=== PATIENT | female | born 1965 | race Caucasian/White ===

== ENCOUNTER 2020-11-24 03:00 | Emergency (ER) | payer OTHER ==
[~2020-11-24] VITALS: Ht 170.2 cm; Wt 99.8 kg
--- NOTE | ~2020-11-24 | EMS ---
[address] [address] EMS Patient Care Report Name: VIVIAN CHATMAN Room #: DEP [facility]#: [id number] Admission: 11/24/20 Attend Phys: Discharge: 11/24/20 Date of : 67 Report #: [id number] THIS REPORT FOR: //name// Report Transmitted: 11/25/2020 09:34 EMS Care Summary [place], [place]/[facility] Incident [id number] @ 11/24/2020 02:10 Incident Location [address] [place] [address] Patient VIIVAN CHATMAN Female, 55 Years 1965 Patient Address [address] [place] [address] Patient History Bronchitis Chronic,Emphysema,Anxiety Disorder (Panic Attacks), Patient Allergies No known allergies, Patient Medications None Reported, Chief Complaint I can't breathe Disposition Transported No Lights/[place] Dispatch Reason Breathing Problem Transported To [facility] Narrative Called for SOB. Upon arrival, P41 on the scene. Pt was DE LEON x 3 with nebulizer tx going. Pt was recently dx with bronchitis and c/o SOB. Nebulizer tx was finished and pt was panicing. After efforts to calm her down failed, she said she wanted to go to the hospital by an ambulance. Pt assisted [place] [address] EMS Patient Care Report Name: VIVIAN CHATMAN Room #: [facility]#: [id number] Admission: 11/24/20 Attend Phys: Discharge: 11/24/20 Date of : 67 Report #: [id number] and loaded into the ambulance w/o incident. Vitals obtained. En route: pt c/o pressure in her chest, 12 lead obtained, no ST elevation noted. RR to ER. Vitals repeated. Arrived: pt taken to ER #7 and moved to their bed w/o incident. Pt care & report to ER staff. Initial Vitals @02:51P: 83,GCS: 15,CO: 4,SpO2: 97,AL Suspected: false @02:52P: 88,R: 16,BP: 142/89,Pain: 2/10,GCS: 15,SpO2: 98,Revised Trauma: 12, @02:40P: 88,R: 16,BP: 135/82,Pain: 0/10,GCS: 15,CO: 2,SpO2: 98,Revised Trauma: 12, Assessments @02:20MENTAL:Person Oriented,Time Oriented,Event Oriented,Place Oriented,SKIN:HEENT:LUNG SOUNDS:ABDOMEN:PELVIS//GI:EXTREMITIES:Left Arm: No Abnormalities,Right Arm: No Abnormalities,Left Leg: No Abnormalities,Right Leg: No Abnormalities,PULSE:Radial: 2+ Normal,NEURO:No Abnormalities, Impression Acute Respiratory Distress (Dyspnea) Procedures @PTAAlbuterol - 2.5 Milligrams (mg) - NebulizedResponse: Improved@PTAAtrovent - 0.5 Milligrams (mg) - NebulizedResponse: Improved@PTAOxygen FlowRate: 8 Device: Nebulizer Response: ImprovedSucceeded@02:20ALS AssessmentResponse: UnchangedSucceeded@02:38StretcherResponse: Unchanged@02:5112-Lead ECGResponse: UnchangedSucceeded@02:503-Lead ECGResponse: UnchangedSucceeded Timeline AITCHBONE BREAKER,Albuterol - 2.5 Milligrams (mg) - Nebulized,Response: Improved AITCHBONE BREAKER,Atrovent - 0.5 Milligrams (mg) - Nebulized,Response: Improved AITCHBONE BREAKER,Oxygen FlowRate: 8 Device: Nebulizer Response: ImprovedSucceeded, 02:10,Call Received 02:10,Dispatch Notified 02:10,Dispatched 02:12,En Route 02:19,On Scene 02:20,At Patient 02:20,ALS Assessment,Response: UnchangedSucceeded, 02:38,Stretcher,Response: Unchanged 02:40,BP: 135/82 M,PULSE: 88,RR: 16 R,SPO2: 98 Ox,ETCO2: ,BG: ,PAIN: 0,GCS: 15, 02:41,Depart Scene 02:50,3-Lead ECG,Response: UnchangedSucceeded, 02:51,12-Lead ECG,Response: UnchangedSucceeded, 02:51,BP: / M,PULSE: 83,RR: R,SPO2: 97 Ox,ETCO2: ,BG: ,PAIN: ,GCS: 15, 02:52,BP: 142/89 M,PULSE: 88,RR: 16 R,SPO2: 98 Ox,ETCO2: ,BG: ,PAIN: 2,GCS: 15, 03:00,At Destination [facility] [address] [place] [address] EMS Patient Care Report Name: VIVIAN CHATMAN [facility] [id number] Admission: 11/24/20 Attend Phys: Discharge: 11/24/20 Date of : 67 Report #: [id number] 03:13,Call Closed Disclaimer v1.1 Copyright 2020 [employer] This EMS Care Summary contains data elements from the applicable legal record (which may be displayed differently). It is designed to provide pertinent information for the following purposes: continuity of care, clinical quality, and state data reporting. The complete legal record is available to ED staff and administrators of the receiving hospital in [facility]'s Patient Tracker. All data is provided "as is."
--- NOTE | ~2020-11-24 | EMS ---
[address] [address] EMS Patient Care Report Name: VIVIAN CHATMAN Room #: DEP [facility]#: [id number] Admission: 11/24/20 Attend Phys: Discharge: 11/24/20 Date of : 67 Report #: [id number] THIS REPORT FOR: //name// Report Transmitted: 11/25/2020 08:34 EMS Care Summary [place], [place]/[facility] Incident [id number] @ 11/24/2020 02:10 Incident Location [address] [place] [address] Patient VIVIAN CHATMAN Female, 55 Years 1965 Patient Address [address] [place] [address] Patient History Bronchitis Chronic,Emphysema,Anxiety Disorder (Panic Attacks), Patient Allergies No known allergies, Patient Medications None Reported, Chief Complaint I can't breathe Disposition Transported No Lights/[place] Dispatch Reason Breathing Problem Transported To [facility] Narrative Called for SOB. Upon arrival, P41 on the scene. Pt was DE LEON x 3 with nebulizer tx going. Pt was recently dx with bronchitis and c/o SOB. Nebulizer tx was finished and pt was panicing. After efforts to calm her down failed, she said she wanted to go to the hospital by an ambulance. [place] [address] EMS Patient Care Report Name: VIVIAN CHATMAN Room #: [facility]#: [id number] Admission: 11/24/20 Attend Phys: Discharge: 11/24/20 Date of : 67 Report #: [id number] and loaded into the ambulance w/o incident. Vitals obtained. En route: pt c/o pressure in her chest, 12 lead obtained, no ST elevation noted. RR to ER. Vitals repeated. Arrived: pt taken to ER #7 and moved to their bed w/o incident. Pt care & report to ER staff. Initial Vitals @02:51P: 83,GCS: 15,CO: 4,SpO2: 97,MA Suspected: false @02:52P: 88,R: 16,BP: 142/89,Pain: 2/10,GCS: 15,SpO2: 98,Revised Trauma: 12, @02:40P: 88,R: 16,BP: 135/82,Pain: 0/10,GCS: 15,CO: 2,SpO2: 98,Revised Trauma: 12, Assessments @02:20MENTAL:Place Oriented,Event Oriented,Time Oriented,Person Oriented,SKIN:HEENT:LUNG SOUNDS:ABDOMEN:PELVIS//GI:EXTREMITIES:Left Arm: No Abnormalities,Right Arm: No Abnormalities,Left Leg: No Abnormalities,Right Leg: No Abnormalities,PULSE:Radial: 2+ Normal,NEURO:No Abnormalities, Impression Acute Respiratory Distress (Dyspnea) Procedures @PTAAlbuterol - 2.5 Milligrams (mg) - NebulizedResponse: Improved@PTAAtrovent - 0.5 Milligrams (mg) - NebulizedResponse: Improved@PTAOxygen FlowRate: 8 Device: Nebulizer Response: ImprovedSucceeded@02:20ALS AssessmentResponse: UnchangedSucceeded@02:38StretcherResponse: Unchanged@02:5112-Lead ECGResponse: UnchangedSucceeded@02:503-Lead ECGResponse: UnchangedSucceeded Timeline CAMP ASSISTANT,Albuterol - 2.5 Milligrams (mg) - Nebulized,Response: Improved CAMP ASSISTANT,Atrovent - 0.5 Milligrams (mg) - Nebulized,Response: Improved CAMP ASSISTANT,Oxygen FlowRate: 8 Device: Nebulizer Response: ImprovedSucceeded, 02:10,Call Received 02:10,Dispatch Notified 02:10,Dispatched 02:12,En Route 02:19,On Scene 02:20,At Patient 02:20,ALS Assessment,Response: UnchangedSucceeded, 02:38,Stretcher,Response: Unchanged 02:40,BP: 135/82 M,PULSE: 88,RR: 16 R,SPO2: 98 Ox,ETCO2: ,BG: ,PAIN: 0,GCS: 15, 02:41,Depart Scene 02:50,3-Lead ECG,Response: UnchangedSucceeded, 02:51,12-Lead ECG,Response: UnchangedSucceeded, 02:51,BP: / M,PULSE: 83,RR: R,SPO2: 97 Ox,ETCO2: ,BG: ,PAIN: ,GCS: 15, 02:52,BP: 142/89 M,PULSE: 88,RR: 16 R,SPO2: 98 Ox,ETCO2: ,BG: ,PAIN: 2,GCS: 15, 03:00,At Destination [facility] [address] [place] [address] EMS Patient Care Report Name: VIVIAN CHATMAN [facility] [id number] Admission: 11/24/20 Attend Phys: Discharge: 11/24/20 Date of : 67 Report #: [id number] 03:13,Call Closed Disclaimer v1.1 Copyright 2020 [employer] This EMS Care Summary contains data elements from the applicable legal record (which may be displayed differently). It is designed to provide pertinent information for the following purposes: continuity of care, clinical quality, and state data reporting. The complete legal record is available to ED staff and administrators of the receiving hospital in [facility]'s Patient Tracker. All data is provided "as is."
[2020-11-24] MEDS ORDERED: NOHOMEMEDICATIONS (03:24)
[2020-11-24] MEDS ORDERED: DIPHENHIST50 MG PO (03:25)
[2020-11-24] MEDS ORDERED: EXCEDRIN CAPLE1 EACH PO (03:25)
[2020-11-24 04:18] LABS: ABSOLUTE NEUTROPHILS 5.3 thou/uL (1.4-8.2); BASOPHILS 1.3 % (0.0-2.0); HEMATOCRIT 43.5 % (37.0-47.0); HEMOGLOBIN 14.5 gm/dL (12.0-15.0); LYMPHOCYTES 36.5 % (24.0-44.0); MCH 29.7 pg (26.0-34.0); MCHC 33.3 g/dL (28.0-37.0); MCV 89.2 fL (80.0-100.0); PLATELET COUNT 317 thou/uL (150-400); POLYS 52.2 % (36.0-66.0); RBC 4.88 mil/uL (4.20-5.00); WBC 10.1 thou/uL (4.0-11.0)
[2020-11-24 04:31] LABS: ANION GAP 11 mmol/L (7-16); BUN 16 mg/dL (7-18); CALCIUM 8.8 mg/dL (8.5-10.1); CHLORIDE 104 mmol/L (98-107); CO2 24 mmol/L (21-32); CREATININE 0.6 mg/dL (0.6-1.0); GLUCOSE 121 mg/dL (74-106); SODIUM 139 mmol/L (136-145)
[2020-11-24 04:32] LABS: POTASSIUM 5.3 mmol/L (3.5-5.1)
[2020-11-24 04:40] LABS: ALBUMIN 3.4 g/dL (3.4-5.0); SGOT 91 U/L (15-37); SGPT 76 U/L (30-65); TOTAL BILIRUBIN 0.5 mg/dL (0.2-1.0); TOTAL PROTEIN 7.1 g/dL (6.4-8.2); TROPONIN-I <0.06 ng/mL (<0.06)
[2020-11-24 04:41] LABS: URINE BILIRUBIN NEGATIVE (Negative); URINE BLOOD NEGATIVE (Negative); URINE CLARITY CLEAR; URINE COLOR YELLOW; URINE GLUCOSE-RANDOM* NEGATIVE (Negative); URINE KETONES NEGATIVE (Negative); URINE LEUKOCYTES-REFLEX NEGATIVE (Negative); URINE NITRITE-REFLEX NEGATIVE (Negative); URINE PROTEIN (DIPSTICK) NEGATIVE (Negative); URINE SPECIFIC GRAVITY <= 1.005 (1.005-1.035); URINE UROBILINOGEN 0.2 E.U./dl (0.2-1.0)
--- NOTE | 2020-11-24 07:11 | EKG ---
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
[2020-11-24] MEDS ORDERED: AZITHROMYCIN 2250 MG PO (07:17)
[2020-11-24 07:22] VITALS: BP 135/98
== END 2020-11-24 07:44 | disposition home or self-care (01) ==
LOC: ER 03:00
PROVIDERS: Emergency Medicine
DX: R06.00 Dyspnea, unspecified (principal); Z20.822 Contact with and (suspected) exposure to COVID-19; J43.9 Emphysema, unspecified; Z79.82 Long term (current) use of aspirin; Z79.899 Other long term (current) drug therapy